=== PATIENT | male | born 1945 | race Hispanic/Latino ===

== ENCOUNTER 2016-08-13 11:26 | Day surgery (SDC) | payer MEDICARE, BC ==
[2016-08-05 11:20] VITALS: BMI 26.7
[2016-08-13] MEDS ORDERED: Propofol 10 mg/ml Inj (20 ML) ONE (12:00)
[2016-08-13] MEDS ORDERED: Sodium Chloride 0.9% 1,000 ML IV SCH (12:45)
[2016-08-13 13:38] VITALS: BP 135/68; PULSE 69; RESP 16; TEMP 97.5; O2SAT 97
== END 2016-08-13 13:52 | disposition home or self-care (01) ==
LOC: ENDO 11:26
PROVIDERS: ATTEND Internal Medicine
DX: D50.9 Iron deficiency anemia, unspecified (principal); K20.8 Other esophagitis; K29.70 Gastritis, unspecified, without bleeding; D12.5 Benign neoplasm of sigmoid colon; K64.8 Other hemorrhoids; I10 Essential (primary) hypertension; Z85.038 Personal history of other malignant neoplasm of large intestine
CPT/HCPCS: 43239; 45385; 88305; 88342; J2001; J2704; J3010; J7040

== ENCOUNTER 2016-08-25 09:45 | Day surgery (SDC) | payer MEDICARE, BC ==
[2016-08-05 11:20] VITALS: BMI 26.7
[2016-08-25 10:29] LABS: ADD MANUAL DIFF? NO
[2016-08-25 10:31] LABS: BASO # 0.02 K/mm3 (0.0-2.0); BASO % 0.4 % (0.0-3.0); EOS # 0.1 (0.0-0.7); EOS % 1.9 % (1.5-5.0); GRAN # 3.31 (1.4-6.5); GRAN % 63.1 % (50.0-68.0); HEMATOCRIT 42.2 % (42.0-52.0); LYMPH # 1.4 (1.2-3.4); MEAN CELL VOLUME 85.3 fL (80.0-105.0); MEAN CORPUSCULAR HEMOGLOBIN 28.1 pg (25.0-35.0); MEAN CORPUSCULAR HGB CONC 32.9 g/dl (31.0-37.0); MEAN PLATELET VOLUME 9.8 fl (7.0-11.0); MONO # 0.5 (0.1-0.6); MONO % 8.6 % (1.0-6.0); PLATELET COUNT 208 10^3/uL (120.0-450.0); RED CELL DISTRIBUTION WIDTH 16.3 % (11.5-14.5); WHITE BLOOD COUNT 5.2 10^3/ul (4.5-11.0)
[2016-08-25 10:44] LABS: BLOOD UREA NITROGEN 16 mg/dL (7-21); CALCIUM 9.2 mg/dL (8.4-10.5); CARBON DIOXIDE 32 mmol/L (21-33); CHLORIDE 100 mmol/L (98-107); GFR AFRICAN-AMERICAN > 60; GLUCOSE,RANDOM 99 mg/dL (70-110); POTASSIUM 4.4 mmol/L (3.6-5.0); SODIUM 140 mmol/L (132-148)
[2016-08-25 10:45] LABS: INR 0.99 (0.93-1.08); PARTIAL THROMBOPLASTIN TIME 28.2 Seconds (23.7-30.8)
--- NOTE | 2016-08-25 11:01 | CP.SDSHP ---
Same Day Surgery H & P - History Proposed Procedure: Liver Biopsy for suspected hepatic lesions Pre-Op Diagnosis: H/o recent colon cancer s/p resection, anstomosis, but finding of lesion on the liver suspecious of mets - Previous Medical/Surgical History Cardiac: Hypertension Comments: As in diagnosis, and above Previous Surgical History: Colon resection, colostomy, then reanastomosis, abd wall abscess - Allergies Allergies: Allergies No Known Allergies Allergy (Verified 05/06/16 13:36) - Current Medications Current Medications: Reviewed - Physical Exam Vital Signs: Vital Signs 08/25/16 10:15 Temperature 98.1 F Pulse Rate 68 Respiratory 20 Rate Blood Pressure 137/83 O2 Sat by Pulse 99 Oximetry Mental Status: Alert & Oriented x3 Neuro: WNL Heart: WNL Lungs: WNL GI: Other (Midline healing scar, nt, bs present) - {Optional Preform as Required} Abdomen: Other (as above) - Impression Impression: 71 M with h/o ex tobacco abuse, h/o htn, colon cancer with resection and anstomosis, for evaluation of hepatic lesions suspecious for mets. Clinically not giving any symptoms suggesting cardiopulmonary restriction for the hepatic biopsy as procedure. Pt. Evaluated Today:Candidate for Anesthesia & Procedure: Yes (see above) Short Stay Discharge - Short Stay Discharge Admitting Diagnosis/Reason for Visit: COLON CA C18.9 Disposition: HOME/ ROUTINE
[2016-08-25] MEDS ORDERED: Midazolam 2 MG/2 ML VIAL ONE (12:21)
[2016-08-25] MEDS ORDERED: Oxycodone/Acetaminophen 5/325 mg Tab PO PRN (13:15)
[2016-08-25] MEDS ORDERED: Sodium Chloride 0.45% 1,000 ML IV SCH (13:15)
[2016-08-25] MEDS ORDERED: Oxycodone/Acetaminophen 5/325 mg Tab ONE (13:29)
[2016-08-25 14:17] VITALS: RESP 18; TEMP 97.5
[2016-08-25 15:34] VITALS: BP 118/55; PULSE 78; O2SAT 95
--- NOTE | 2016-08-25 17:08 | CT ---
PROCEDURE: CT guided liver biopsy. HISTORY: Colon CA. New liver lesions. Evaluate metastatic disease. PHYSICIAN(S): Mike Andrade MD. TECHNIQUE: The relative risks and indications of the procedure were explained to the patient and consent obtained. The patient was placed supine on the CT scanner and preliminary images through the liver obtained. Conscious sedation and monitoring were provided throughout the procedure by a nurse. There are 2 low-density lesions in the right lobe of the liver posteriorly. The larger 2.6 cm lesion was selected for biopsy. A right lateral approach was selected and the area prepped and draped in the usual sterile fashion. 1% Xylocaine was used to anesthetize the skin and soft tissues. A 17-gauge guiding needle was advanced into the 2.6 cm right liver mass. Its position was confirmed with CT. Using coaxial technique, multiple core biopsies were obtained. The postprocedure images show no evidence of significant hemorrhage. IMPRESSION: 1. CT-guided liver biopsy as described above.
== END 2016-08-25 16:45 | disposition home or self-care (01) ==
LOC: SDS 09:45
PROVIDERS: ATTEND Radiology Vascular & Interventional Radiology
DX: C78.7 Secondary malignant neoplasm of liver and intrahepatic bile duct (principal); Z85.038 Personal history of other malignant neoplasm of large intestine; I10 Essential (primary) hypertension
CPT/HCPCS: 36415; 47000; 77012; 80048; 85025; 85610; 85730; 88307; J2250; J2405; J3010; J7030

== ENCOUNTER 2016-09-11 11:07 | Day surgery (SDC) | payer MEDICARE, BC ==
[2016-08-05 11:20] VITALS: BMI 26.7
[2016-09-11] MEDS ORDERED: Lidocaine 2% Inj (20ml) ONE (11:31)
[2016-09-11 11:42] LABS: ADD MANUAL DIFF? NO
[2016-09-11 11:55] LABS: ALB/GLOB RATIO 1.3 (1.1-1.8); ALKALINE PHOSPHATASE 97 U/L (38-133); ALT/SGPT 60 U/L (7-56); AST/SGOT 46 U/L (15-59); BILIRUBIN,TOTAL 1.2 mg/dL (0.2-1.3); BLOOD UREA NITROGEN 17 mg/dL (7-21); CALCIUM 9.1 mg/dL (8.4-10.5); CARBON DIOXIDE 28 mmol/L (21-33); CHLORIDE 100 mmol/L (98-107); GFR AFRICAN-AMERICAN > 60; GLUCOSE,RANDOM 119 mg/dL (70-110); POTASSIUM 3.9 mmol/L (3.6-5.0); SODIUM 138 mmol/L (132-148); TOTAL PROTEIN 7.7 g/dL (5.8-8.3)
[2016-09-11 12:05] LABS: BASO # 0.03 K/mm3 (0.0-2.0); BASO % 0.5 % (0.0-3.0); EOS # 0.1 (0.0-0.7); EOS % 1.4 % (1.5-5.0); GRAN # 3.53 (1.4-6.5); GRAN % 61.9 % (50.0-68.0); HEMATOCRIT 40.3 % (42.0-52.0); LYMPH # 1.5 (1.2-3.4); LYMPH % 26.6 % (22.0-35.0); MEAN CELL VOLUME 84.3 fL (80.0-105.0); MEAN CORPUSCULAR HEMOGLOBIN 27.8 pg (25.0-35.0); MEAN PLATELET VOLUME 9.4 fl (7.0-11.0); MONO # 0.6 (0.1-0.6); MONO % 9.6 % (1.0-6.0); PLATELET COUNT 205 10^3/uL (120.0-450.0); RED CELL DISTRIBUTION WIDTH 15.5 % (11.5-14.5); WHITE BLOOD COUNT 5.7 10^3/ul (4.5-11.0)
[2016-09-11] MEDS ORDERED: Midazolam 2 MG/2 ML VIAL ONE ×2 (12:11→12:24)
[2016-09-11 12:21] LABS: INR 1.01 (0.93-1.08); PARTIAL THROMBOPLASTIN TIME 28.9 Seconds (23.7-30.8)
[2016-09-11] MEDS ORDERED: Oxycodone/Acetaminophen 5/325 mg Tab PO PRN (13:04)
[2016-09-11] MEDS ORDERED: Sodium Chloride 0.45% 1,000 ML IV SCH (13:15)
[2016-09-11 13:32] VITALS: TEMP 98.4
[2016-09-11 13:42] VITALS: RESP 17
[2016-09-11] MEDS ORDERED: Oxycodone/Acetaminophen 5/325 mg Tab ONE (14:12)
[2016-09-11 14:40] VITALS: BP 109/63; PULSE 75; O2SAT 96
--- NOTE | 2016-09-11 17:19 | VASCULAR ---
PROCEDURE: Ultrasound and fluoroscopic right internal jugular venous access port. CLINICAL HISTORY: Colon CA with hepatic metastasis.Venous port for chemotherapy. PHYSICIAN(S): Mike Andrade M.D. TECHNIQUE: The relative risks and indications of the procedure were explained to the patient and consent obtained. The patient was placed supine on the arteriogram table and the right neck and chest prepped and draped in the usual sterile fashion. Conscious sedation monitoring was provided throughout the procedure by a nurse. Antibiotics were given prior to the procedure. Under direct ultrasound guidance, the right internal jugular vein was punctured with a micro-puncture set. A 0.035 angled Glidewire was advanced into the IVC. A 4 cm incision was made below the right clavicle and the pocket blunted dissected. A 8 Vietnamese single-lumen catheter, 23 cm long, was advanced to the SVC/RA junction. The catheter was trimmed and attached to the port. The port aspirates and injects easily. The port was placed in the pocket and closed in 2 layers. The patient tolerated the procedure well. IMPRESSION: Ultrasound and fluoroscopically placed right internal jugular venous access port.
== END 2016-09-11 15:05 | disposition home or self-care (01) ==
LOC: SDSVAS 11:07
PROVIDERS: ATTEND Radiology Vascular & Interventional Radiology
DX: C18.9 Malignant neoplasm of colon, unspecified (principal); C78.7 Secondary malignant neoplasm of liver and intrahepatic bile duct; I10 Essential (primary) hypertension
CPT/HCPCS: 36415; 36561; 76937; 77001; 80053; 85025; 85610; 85730; 99152; C1760; C1769; C1788; J0690; J1644; J2250; J2405; J3010; J7030 ×2

== ENCOUNTER 2017-03-04 06:42 | Day surgery (SDC) | payer MEDICARE, BC ==
[2017-02-19 12:58] VITALS: BMI 26.9
[2017-03-04 07:34] LABS: BASO # 0.02 K/mm3 (0.0-2.0); BASO % 0.4 % (0.0-3.0); EOS # 0.1 (0.0-0.7); EOS % 1.4 % (1.5-5.0); GRAN # 2.95 (1.4-6.5); GRAN % 57.6 % (50.0-68.0); HEMATOCRIT 42.2 % (42.0-52.0); LYMPH # 1.2 (1.2-3.4); LYMPH % 23.8 % (22.0-35.0); MEAN CELL VOLUME 96.8 fl (80.0-105.0); MEAN CORPUSCULAR HEMOGLOBIN 33.3 pg (25.0-35.0); MEAN CORPUSCULAR HGB CONC 34.4 g/dl (31.0-37.0); MEAN PLATELET VOLUME 9.3 fl (7.0-11.0); MONO # 0.9 (0.1-0.6); MONO % 16.8 % (1.0-6.0); RED CELL DISTRIBUTION WIDTH 15.7 % (11.5-14.5); WHITE BLOOD COUNT 5.1 10^3/ul (4.5-11.0)
[2017-03-04 07:47] LABS: INR 0.97 (0.93-1.08); PARTIAL THROMBOPLASTIN TIME 32.6 Seconds (25.1-36.5)
[2017-03-04 07:50] VITALS: RESP 18
[2017-03-04 08:00] LABS: BLOOD UREA NITROGEN 16 mg/dL (7-21); CARBON DIOXIDE 30 mmol/L (21-33); CHLORIDE 104 mmol/L (98-107); GFR AFRICAN-AMERICAN > 60; GLUCOSE,RANDOM 96 mg/dL (70-110); POTASSIUM 4.5 mmol/L (3.6-5.0); SODIUM 143 mmol/L (132-148)
[2017-03-04] MEDS ORDERED: Lidocaine 2% Inj (20ml) ONE (09:19)
[2017-03-04] MEDS ORDERED: Midazolam 2 MG/2 ML VIAL ONE ×2 (09:21→09:30)
[2017-03-04] MEDS ORDERED: Iohexol 350 MG/100 ML VIAL ONE (09:35)
[2017-03-04] MEDS ORDERED: Iohexol 350mgl/ml 50 ML ONE (09:35)
[2017-03-04] MEDS ORDERED: Sodium Chloride 0.9% 1,000 ML IV SCH (10:15)
[2017-03-04 10:23] VITALS: TEMP 97.6
--- NOTE | 2017-03-04 11:16 | CARDCATH ---
PROCEDURE DATE: 03/04/2017 HISTORY: The patient is a 71-year-old male who presents with an abnormal stress test which was done because of cardiac evaluation for continued treatment of his colon CA. The patient's past medical history includes chest pain, colon CA, hypertension as well as remote history of smoking. Because of this, cardiac catheterization was recommended. PROCEDURES: Left heart catheterization with coronary angiography and left ventriculogram. The right femoral artery was cannulated with a 6-Guyanese sheath. There were no complications. FINDINGS: The findings on catheterization revealed a left ventricle that contracted normally. Estimated ejection fraction is between 65% and 70%. His coronary anatomy revealed right dominant circulation. The RCA revealed intimal irregularities without significant stenosis. The left main artery was unremarkable. The LAD revealed an eccentric 50% stenosis in the proximal portion as well as a 50% intramyocardial stenosis in the midportion of the LAD. The diagonal vessels were free of significant disease. The circumflex artery and obtuse marginal branches revealed intimal irregularities without significant stenoses. The patient tolerated the procedure well. Angio-Seal was used to close the femoral artery site. In summary, the procedure revealed two 50% lesions in the LAD, one in the proximal portion, one in the midportion. 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 LV function is within normal limits. Given these findings, the patient's treatment should be medical. He should be on aspirin daily, statin therapy as well as cessation of smoking. There are no cardiac contraindications to continued treatment for his colon CA. Mike Lee MD
[2017-03-04 13:40] VITALS: O2SAT 96
[2017-03-04 14:05] VITALS: BP 109/67; PULSE 64
--- NOTE | 2017-03-04 20:55 | CARD ---
APPROVED REPORT EKG Measurement Heart [id number] <Conclusion> Normal sinus rhythm Right bundle branch block Abnormal ECG
== END 2017-03-04 16:00 | disposition home or self-care (01) ==
LOC: CATH 06:42
PROVIDERS: ATTEND Internal Medicine Cardiovascular Disease
DX: I25.10 Atherosclerotic heart disease of native coronary artery without angina pectoris (principal); I10 Essential (primary) hypertension; C18.9 Malignant neoplasm of colon, unspecified; Z87.891 Personal history of nicotine dependence
CPT/HCPCS: 36415; 80048; 85025; 85610; 85730; 86850; 86900; 93005; 93458; 99152; C1760; C1769; C2629; J1642; J1644; J2250; J3010; J7040 ×2; Q9967